=== PATIENT | female | born 1955 | race Caucasian/White ===

== ENCOUNTER 2017-02-22 07:47 | Day surgery (SDC) | payer MEDICAID ==
[2017-02-16 09:20] VITALS: BMI 35.9
[2017-02-22] MEDS ORDERED: Propofol 10 mg/ml Inj (20 ML) ONE ×2 (09:39→09:55)
[2017-02-22] MEDS ORDERED: Sodium Chloride 0.9% 1,000 ML IV SCH (10:15)
[2017-02-22 11:50] VITALS: BP 143/75; PULSE 51; RESP 16; TEMP 97.8; O2SAT 95
== END 2017-02-22 11:42 | disposition home or self-care (01) ==
LOC: ENDO 07:47
PROVIDERS: ATTEND Internal Medicine
DX: K62.5 Hemorrhage of anus and rectum (principal); K62.89 Other specified diseases of anus and rectum; K92.1 Melena; R19.7 Diarrhea, unspecified; K64.8 Other hemorrhoids; I10 Essential (primary) hypertension; E11.9 Type 2 diabetes mellitus without complications; M81.0 Age-related osteoporosis without current pathological fracture; Z90.710 Acquired absence of both cervix and uterus; Z86.010 Personal history of colon polyps
CPT/HCPCS: 45380; 82948; 88305; J2704; J7040

== ENCOUNTER 2018-03-17 18:56 | Inpatient (IN) | payer MEDICAID ==
[2018-03-17 19:38] VITALS: BMI 42.5
--- NOTE | 2018-03-17 19:46 | ED PDOC ---
Arrival/HPI - General Chief Complaint: Dizziness/Lightheaded Time Seen by Provider: 03/17/18 19:04 - History of Present Illness Narrative History of Present Illness (Text): 03/17/18 19:44 62 yo female, hx of htn, dm, presetns with dizziness for 5 days. taking meclzine w/o relief. states she has difficulty ambulating 2/2 dizziness. describes dizziness as "room spinning". no fevrs, cough. c/o of mild adam. Past Medical History - Infectious Disease Hx of Infectious Diseases: None - Cardiac Hx Hypertension: Yes Hx Pacemaker: No - Neurological Hx Paralysis: No Hx Vertigo: Yes - Endocrine/Metabolic Hx Diabetes Mellitus Type 2: Yes - Hematological/Oncological Hx Blood Transfusions: No Hx Blood Transfusion Reaction: No - Musculoskeletal/Rheumatological Hx Musculoskeletal Disorders: Yes Hx Osteoporosis: Yes - Psychiatric Hx Emotional Abuse: No Hx Physical Abuse: No Hx Substance Use: No - Surgical History Hx Hysterectomy: Yes Hx Mastectomy: Yes (R breast) - Anesthesia Hx Anesthesia: Yes Hx Anesthesia Reactions: No Hx Malignant Hyperthermia: No - Suicidal Assessment Feels Threatened In Home Enviroment: No Family/Social History Family/Social History: Unknown Family HX Smoking Status: Never Smoked Hx Alcohol Use: No Hx Substance Use: No Allergies/Home Meds Allergies/Adverse Reactions: Allergies No Known Allergies Allergy (Verified 02/16/17 09:18) Home Medications: Home Meds Medication Instructions Recorded Confirmed MetFORMIN ER [Glucophage XR] 750 mg PO DAILY 02/16/17 03/17/18 Wheat Dextrin [Benefiber] 1 each PO TID 02/16/17 03/17/18 amLODIPine [Norvasc] 10 mg PO DAILY 02/16/17 03/17/18 Aspirin [Ecotrin] 1 tab PO DAILY 02/22/17 03/17/18 Ergocalciferol [Drisdol 50,000 1 cap PO Q7D 03/17/18 03/17/18 Intl Units Cap] Meclizine HCl [Bonine] 1 tab PO Q12H PRN 03/17/18 03/17/18 Metoprolol Succinate [Metoprolol 1 tab PO DAILY 03/17/18 03/17/18 Succinate] hydroCHLOROthiazide [Microzide] 1 tab PO DAILY 03/17/18 03/17/18 Review of Systems - Review of Systems Constitutional: Normal Eyes: Normal ENT: Normal Respiratory: Normal Cardiovascular: Normal Gastrointestinal: Normal Genitourinary Female: Normal Musculoskeletal: Normal Skin: Normal Neurological: Headache, Dizziness Endocrine: Normal Hemo/Lymphatic: Normal Psychiatric: Normal Physical Exam Vital Signs Temp Pulse Resp BP Pulse Ox 03/17/18 22:32 62 20 143/74 97 03/17/18 19:21 99.1 F 63 18 133/89 95 Temperature: Afebrile Blood Pressure: Normal Pulse: Regular Respiratory Rate: Normal Appearance: Positive for: Well-Appearing, Non-Toxic, Comfortable Pain Distress: None Mental Status: Positive for: Alert and Oriented X 3 Finger Stick Blood Glucose: 98 - Systems Exam Head: Present: Atraumatic, Normocephalic Pupils: Present: PERRL Extroacular Muscles: Present: EOMI Conjunctiva: Present: Normal Mouth: Present: Moist Mucous Membranes Neck: Present: Normal Range of Motion Respiratory/Chest: Present: Clear to Auscultation, Good Air Exchange. No: Respiratory Distress, Accessory Muscle Use Cardiovascular: Present: Regular Rate and Rhythm, Normal S1, S2. No: Murmurs Abdomen: No: Tenderness, Distention, Peritoneal Signs Back: Present: Normal Inspection Upper Extremity: Present: Normal Inspection. No: Cyanosis, Edema Lower Extremity: Present: Normal Inspection. No: Edema Neurological: Present: GCS=15, CN II-XII Intact, Speech Normal, Motor Func Grossly Intact, Normal Sensory Function, Normal Cerebellar Funct Skin: Present: Warm, Dry, Normal Color. No: Rashes Psychiatric: Present: Alert, Oriented x 3, Normal Insight, Normal Concentration Medical Decision Making ED Course and Treatment: dizziness/vertigo- r/o centrla vs peripheral etiology 03/17/18 20:01 ekg nsr [address] twave chagnes 03/17/18 22:32 CT Head w/o Contrast reviewed, shows: Brain: Mild volume loss is seen in keeping with age. Mild decrease in attenuation of the periventricular white matter likely related to small vessel ischemic change. The brain otherwise with normal tadeo-white matter differentiation, demonstrating no edema, mass effect, acute hemorrhage, or focal mass. Ventricles: Unremarkable. No ventriculomegaly. Bones/joints: Unremarkable. No acute fracture. Soft tissues: Unremarkable. Sinuses: Unremarkable as visualized. No acute sinusitis. Mastoid air cells: Unremarkable as visualized. No mastoid effusion. IMPRESSION: There is mild atrophy and chronic white matter ischemic changes, with no evidence of an acute intracranial abnormality 03/18/18 02:02 pt reassesed persistent symptoms, will obs for eval for posterior cva - Lab Interpretations Lab Results: 03/17/18 20:20 03/17/18 21:00 Lab Results 03/17/18 21:00: Sodium 143, Potassium 3.3 L, Chloride 107, Carbon Dioxide 22, Anion Gap 18, BUN 28 H, Creatinine 1.0, Est GFR ( Amer) > 60, Est GFR ( Non-Af Amer) 56, Random Glucose 106, Calcium 10.0, Magnesium 1.6 L, Total Bilirubin 0.3, AST 29, ALT 31, Alkaline Phosphatase 89, Lactate Dehydrogenase 401, Total Creatine Kinase 54, Troponin I < 0.01, Total Protein 8.2, Albumin 4.3 , Globulin 3.9, Albumin/Globulin Ratio 1.1 03/17/18 20:20: PT 10.8, INR 0.95, APTT 28.8 03/17/18 20:20: WBC 10.5, RBC 4.21, Hgb 11.6 L, Hct 34.5 L, MCV 81.9, MCH 27.6, MCHC 33.6, RDW 15.1 H, Plt Count 284, MPV 12.2 H, Gran % 63.4, Lymph % (Auto) 26.1, [place] % (Auto) 7.4 H, Eos % (Auto) 2.9, Baso % (Auto) 0.2, Gran # 6.65 H, Lymph # (Auto) 2.7, [place] # (Auto) 0.8 H, Eos # (Auto) 0.3, Baso # (Auto) 0.02 03/17/18 17:44: Urine Color Yellow, Urine Appearance Sl cloudy, Urine pH 5.5, Ur Specific [place] >= 1.030, Urine Protein Negative, Urine Glucose (UA) Negative, Urine Ketones Negative, Urine Blood Trace-intact H, Urine Nitrate Positive H, Urine Bilirubin Negative, Urine Urobilinogen 0.2, Ur Leukocyte Esterase Negative, Urine RBC Pending, Urine WBC Pending - RAD Interpretation Radiology Orders: 03/17/18 19:44 HEAD W/O CONTRAST [CT] Stat - Medication Orders Current Medication Orders: Amlodipine Besylate (Norvasc) 10 mg PO DAILY [facility] Last Admin: 03/18/18 09:56 Dose: 10 mg MAR Blood Pressure Document 03/18/18 09:56 RV (Rec: 03/18/18 09:56 RV [email or web address] Blood Pressure Blood Pressure (100/60-150/90) 123/70 Aspirin (Ecotrin) 81 mg PO DAILY [facility] Last Admin: 03/18/18 09:56 Dose: 81 mg Diazepam (Valium) 2 mg PO Q8 [facility] PRN Reason: Protocol Insulin Human Regular (Humulin R Low) 0 units SC ACHS [facility] PRN Reason: Protocol Last Admin: 03/18/18 16:29 Dose: Not Given Non-Admin Reason: Blood Sugar Parameter MAR Blood Glucose Document 03/18/18 16:29 RV (Rec: 03/18/18 16:29 RV [id number] Blood Glucose Finger Stick Blood Glucose (70-120) 92 Metoprolol Succinate (Toprol Xl) 100 mg PO BRK [facility] Last Admin: 03/18/18 08:30 Dose: 100 mg MAR Pulse and Blood Pressure Document 03/18/18 08:30 RV (Rec: 03/18/18 08:30 RV [email or web address] Pulse Pulse Rate (60-90) 57 Blood Pressure Blood Pressure (100/60-150/90) 118/72 Ondansetron HCl (Zofran Inj) 4 mg IVP Q6H PRN PRN Reason: Nausea/Vomiting Psyllium Hydrophilic Mucilloid (Hydrocil Instant) 1 pkt PO TID [facility] Last Admin: 03/18/18 18:02 Dose: 1 pkt Discontinued Medications Aspirin (Aspirin) 325 mg PO STAT STA Stop: 03/17/18 22:10 Last Admin: 03/17/18 22:34 Dose: 325 mg Diphenhydramine HCl (Benadryl) 25 mg PO ONCE ONE Stop: 03/17/18 23:25 Last Admin: 03/18/18 00:00 Dose: 25 mg Magnesium 2 gm/50 ml NS (Magnesium Sulfate 2 Gm/50 Ml Ns) 2 gm in 50 mls @ 50 mls/hr IVPB ONCE ONE Stop: 03/17/18 23:13 Last Admin: 03/17/18 22:34 Dose: 50 mls/hr eMAR Start Stop Document 03/17/18 22:34 HI (Rec: 03/17/18 22:34 HI [id number]) Intravenous Solution Start Date 03/17/18 Start Time 22:34 Magnesium 2 gm/50 ml NS (Magnesium Sulfate 2 Gm/50 Ml Ns) 2 gm in 50 mls @ 50 mls/hr IVPB STAT STA Stop: 03/18/18 13:51 Last Admin: 03/18/18 14:02 Dose: 50 mls/hr eMAR Start Stop Document 03/18/18 14:02 RV (Rec: 03/18/18 14:02 RV [email or web address]) Intravenous Solution Start Date 03/18/18 Start Time 14:02 End Date 03/18/18 End time 15:02 Total Infusion Time 60 Meclizine HCl (Antivert) 25 mg PO STAT STA Stop: 03/17/18 19:46 Last Admin: 03/17/18 20:21 Dose: Not Given Non-Admin Reason: Patient Refused Potassium Chloride (K-Dur 20 Meq Er Tab) 40 meq PO STAT STA Stop: 03/17/18 21:43 Last Admin: 03/17/18 22:34 Dose: 40 meq NIHSS Scale ([place]) Time Performed: 02:03 - How Severe is the Stoke Baseline Level of Consciousness: 0=Alert LOC to Questions: 0=Both comments correct LOC to commands: 0=Obeys both correctly Best Gaze: 0=Normal Visual: 0=No visual loss Facial: 0=Normal Motor Arm - Left: 0=No drift Motor Arm - Right: 0=No drift Motor Leg - Left: 0=No drift Motor Leg - Right: 0=No drift Limb Ataxia: 0=Absent Sensory: 0=Normal Best Language: 0=No aphasia Dysarthia: 0=Normal articulation Extinction & Inattention (Neglect): 0=Normal, no object Score: 0 Risk Level: No Stroke Risk rTPA Inclusion/Exclusion - Refusal of Treatment Patient Refused Treatment: No - Inclusion Criteria for Altepase Patient is 18 years or Older: Yes The Clinical Diagnosis of Ischemic Stroke That is Causing a Potentially Disabling Neurological Deficit: No Time of Onset is Well Established to be Less Than 270 Minute Before Treatment Would Begin: No Risk/Benefit Discussed With Patient/Family Member Present: No - Scribe Statement The provider has reviewed the documentation as recorded by the Scribash Iraheta All medical record entries made by the Maverick were at my direction and personally dictated by me. I have reviewed the chart and agree that the record accurately reflects my personal performance of the history, physical exam, medical decision making, and the department course for this patient. I have also personally directed, reviewed, and agree with the discharge instructions and disposition. Disposition/Present on Arrival - Present on Arrival Any Indicators Present on Arrival: No History of DVT/PE: No History of Uncontrolled Diabetes: No Urinary Catheter: No History of Decub. Ulcer: No History Surgical Site Infection Following: None - Disposition Have Diagnosis and Disposition been Completed?: Yes Diagnosis: Dizziness, Vertigo Disposition: HOSPITALIZED Disposition Time: 23:00 Patient Problems: Current Active Problems Problem Status Onset Dizziness Acute Vertigo Acute Condition: STABLE
[2018-03-17 20:38] LABS: BASO # 0.02 K/mm3 (0.0-2.0); BASO % 0.2 % (0.0-3.0); EOS # 0.3 (0.0-0.7); EOS % 2.9 % (1.5-5.0); GRAN # 6.65 (1.4-6.5); GRAN % 63.4 % (50.0-68.0); HEMOGLOBIN 11.6 g/dL (12.0-16.0); LYMPH # 2.7 (1.2-3.4); LYMPH % 26.1 % (22.0-35.0); MEAN CELL VOLUME 81.9 fl (80.0-105.0); MEAN CORPUSCULAR HEMOGLOBIN 27.6 pg (25.0-35.0); MEAN CORPUSCULAR HGB CONC 33.6 g/dl (31.0-37.0); MEAN PLATELET VOLUME 12.2 fl (7.0-11.0); MONO # 0.8 (0.1-0.6); MONO % 7.4 % (1.0-6.0); RBC 4.21 10^6/uL (3.5-6.1); RED CELL DISTRIBUTION WIDTH 15.1 % (11.5-14.5); WHITE BLOOD COUNT 10.5 10^3/ul (4.5-11.0)
[2018-03-17 20:40] LABS: INR 0.95; PROTHROMBIN TIME 10.8 SECONDS (9.4-12.5)
[2018-03-17 20:42] LABS: PARTIAL THROMBOPLASTIN TIME 28.8 Seconds (25.1-36.5)
[2018-03-17 21:30] LABS: ALB/GLOB RATIO 1.1 (1.1-1.8); ALBUMIN 4.3 g/dL (3.0-4.8); ALT/SGPT 31 U/L (7-56); AST/SGOT 29 U/L (14-36); BLOOD UREA NITROGEN 28 mg/dL (7-21); GFR AFRICAN-AMERICAN > 60; GFR NON-AFRICAN AMERICAN 56
[2018-03-17 21:41] LABS: TROPONIN I < 0.01 ng/mL
[2018-03-17] MEDS ORDERED: Potassium Chloride 20 mEq ER Tab PO STA (21:42)
[2018-03-17] MEDS ORDERED: Magnesium 2 gm/50 ml NS 2 GM/50 ML BAG IVPB ONE (22:14)
[2018-03-17] MEDS ORDERED: DiphenhydrAMINE 12.5 mg/5 ml LIQ UD (5 ml) PO PRN (22:53)
--- NOTE | 2018-03-17 23:01 | CP.PCM.HP ---
<RikiDani - Last Filed: 03/17/18 23:29> History of Present Illness - History of Present Illness History of Present Illness: Dani Lyn DO, PGY-1: HPI for Hospitalist Service 62 year old female with a past medical history of hypertension, DM II, and right mastectomy who presents with 5 days of vertigo and bilateral ear pain. She had a URI a week or so ago for which she did not take any medications for. She was trying to go see her PMD, Dr. Shell, but was unable to catch him in the office. She is accompanied by her daughter who acts as the conditioning room worker. She also states that she had some back since she had this cold/URI, but then states that the back pain is chronic. She denies any difficulty breathing at the of my encounter but admits to exceptional level of fatigue after this cold. She denies any fever, chills, nausea, vomiting, diarrhea, dysuria, chest pain, or cough. She reports that the dizziness is like "the room is spinning" and is worsened with head movements. She denies having any history of heart problems, whether it be heart attack or arrhythmias. She does see a rivet tosser though. PMH: Hypertension, DM II PSH: Denies Allergies: Denies Social: Denies alcohol, tobacco, or illicit drug use Present on Admission - Present on Admission Any Indicators Present on Admission: No Review of Systems - Review of Systems All systems: reviewed and no additional remarkable complaints except (as per HPI ) Past Patient History - Infectious Disease Hx of Infectious Diseases: None - Past Social History Smoking Status: Never Smoked - CARDIAC Hx Hypertension: Yes Hx Pacemaker: No - NEUROLOGICAL Hx Paralysis: No Hx Vertigo: Yes - ENDOCRINE/METABOLIC Hx Diabetes Mellitus Type 2: Yes - HEMATOLOGICAL/ONCOLOGICAL Hx Blood Transfusions: No Hx Blood Transfusion Reaction: No - MUSCULOSKELETAL/RHEUMATOLOGICAL Hx Musculoskeletal Disorders: Yes Hx Osteoporosis: Yes - PSYCHIATRIC Hx Emotional Abuse: No Hx Physical Abuse: No Hx Substance Use: No - SURGICAL HISTORY Hx Hysterectomy: Yes Hx Mastectomy: Yes (R breast) - ANESTHESIA Hx Anesthesia: Yes Hx Anesthesia Reactions: No Hx Malignant Hyperthermia: No Meds Allergies/Adverse Reactions: Allergies Allergy/AdvReac Type Severity Reaction Status Date / Time No Known Allergies Allergy Verified 02/16/17 09:18 Physical Exam - Constitutional Appears: No Acute Distress - Head Exam Head Exam: ATRAUMATIC, NORMOCEPHALIC - Eye Exam Eye Exam: EOMI, Normal appearance, Nystagmus (with head movement) Pupil Exam: NORMAL ACCOMODATION - ENT Exam ENT Exam: Mucous Membranes Moist - Neck Exam Additional comments: JVD noted - Respiratory Exam Respiratory Exam: Clear to Auscultation Bilateral, NORMAL BREATHING PATTERN. absent: Accessory Muscle Use - Cardiovascular Exam Cardiovascular Exam: REGULAR RHYTHM, +S1, +S2 Additional comments: some ectopy - GI/Abdominal Exam GI & Abdominal Exam: Normal Bowel Sounds, Soft - Extremities Exam Extremities exam: Positive for: pedal edema (trace). Negative for: calf tenderness - Neurological Exam Neurological exam: Alert, CN II-XII Intact, Oriented x3 - Psychiatric Exam Psychiatric exam: Normal Affect, Normal Mood - Skin Skin Exam: Dry, Intact, Normal Color, Warm Results - Vital Signs Recent Vital Signs: Last Vital Signs Temp 99.1 F 03/17/18 19:21 Pulse 62 03/17/18 22:32 Resp 20 03/17/18 22:32 BP 143/74 03/17/18 22:32 Pulse Ox 97 03/17/18 22:32 - Labs Result Diagrams: 03/17/18 20:20 03/17/18 21:00 - EKG Data EKG Interpreted by: Myself EKG shows normal: Sinus rhythm Assessment & Plan - Assessment and Plan (Free Text) Assessment: 62 year old female with a past medical history of hypertension, DM II, and right mastectomy who presents with 5 days of vertigo, worsened with head movement. CT of the head showed mild atrophy and chronic white matter ischemic changes, with no evidence of an acute intracranial abnormality. Neurology is consulted. Plan: 1) Vertigo - CT head shows mild atrophy and chronic white matter ischemic changes, with no evidence of an acute intracranial abnormality. - Neurology consulted - Patient did respond to Meclizine, trial of Benadryl offered 2) Hypertension - Continue Amlodipine 10 mg - Holding HCTZ in light of it precipitating otoliths - HHD 2 grams of Na 3) DM II - Insulin Sliding scale low with FSBG checks ACHS - HHD moderate consistency 4) Hypomagesemia and hypokalemia - replete and re-check 5) DVT/GI prophylaxis - SCD - Pepcid 20 mg HS Case reviewed and discussed with attending physician, Dr. Clark - Date & Time Date: 03/17/18 Time: 23:50 <Dima Clark - Last Filed: 03/18/18 06:04> Results - Vital Signs Recent Vital Signs: Last Vital Signs Temp 98.9 F 03/17/18 23:11 Pulse 60 03/18/18 02:00 Resp 18 03/17/18 23:11 BP 143/74 03/17/18 23:11 Pulse Ox 97 03/17/18 23:11 - Labs Result Diagrams: 03/17/18 20:20 03/17/18 21:00 Attending/Attestation - Attestation I have personally seen and examined this patient.: Yes I have fully participated in the care of the patient.: Yes I have reviewed all pertinent clinical information: Yes Notes (Text): 03/18/18 06:03 Patient was seen when she was in bed 376-01. History obtained from daughter. Medical record was reviewed. Agree with history, physical examination, assessment and plan.
--- NOTE | 2018-03-18 07:48 | CT ---
Date of service: 03/17/2018 PROCEDURE: CT HEAD WITHOUT CONTRAST. HISTORY: dizziness COMPARISON: None available. TECHNIQUE: Axial computed tomography images were obtained through the head/brain without intravenous contrast. Radiation dose: Total exam DLP = 754 mGy-cm. This CT exam was performed using one or more of the following dose reduction techniques: Automated exposure control, adjustment of the mA and/or kV according to patient size, and/or use of iterative reconstruction technique. FINDINGS: HEMORRHAGE: No intracranial hemorrhage. BRAIN: No mass effect or edema. No atrophy or chronic microvascular ischemic changes. VENTRICLES: Unremarkable. No hydrocephalus. CALVARIUM: Unremarkable. PARANASAL SINUSES: Unremarkable as visualized. No significant inflammatory changes. MASTOID AIR CELLS: Unremarkable as visualized. No inflammatory changes. OTHER FINDINGS: The report concurs with the preliminary [facility] report IMPRESSION: No acute intracranial findings
[2018-03-18 07:55] LABS: BASO # 0.02 K/mm3 (0.0-2.0); BASO % 0.3 % (0.0-3.0); EOS # 0.3 (0.0-0.7); EOS % 4.7 % (1.5-5.0); GRAN # 3.75 (1.4-6.5); GRAN % 54.7 % (50.0-68.0); HEMOGLOBIN 11.6 g/dL (12.0-16.0); LYMPH # 2.1 (1.2-3.4); LYMPH % 31.1 % (22.0-35.0); MEAN CELL VOLUME 82.7 fl (80.0-105.0); MEAN CORPUSCULAR HEMOGLOBIN 26.7 pg (25.0-35.0); MEAN CORPUSCULAR HGB CONC 32.3 g/dl (31.0-37.0); MEAN PLATELET VOLUME 11.7 fl (7.0-11.0); MONO # 0.6 (0.1-0.6); MONO % 9.2 % (1.0-6.0); RBC 4.34 10^6/uL (3.5-6.1); WHITE BLOOD COUNT 6.9 10^3/ul (4.5-11.0)
[2018-03-18] MEDS: Insulin Reg-LOW-Coverage SC SCH ×4 (08:03→23:16)
[2018-03-18 08:15] LABS: ALB/GLOB RATIO 1.1 (1.1-1.8); ALBUMIN 4.1 g/dL (3.0-4.8); ALT/SGPT 26 U/L (7-56); AST/SGOT 26 U/L (14-36); BLOOD UREA NITROGEN 22 mg/dL (7-21); CALCIUM 9.8 mg/dL (8.4-10.5); GFR AFRICAN-AMERICAN > 60; GFR NON-AFRICAN AMERICAN > 60
--- NOTE | 2018-03-18 08:15 | RAD ---
Date of service: 03/17/2018 PROCEDURE: CHEST RADIOGRAPH, 1 VIEW HISTORY: recent URI with referred back pain COMPARISON: None available. FINDINGS: LUNGS: Clear. PLEURA: No pneumothorax or pleural fluid seen. CARDIOVASCULAR: Mild cardiomegaly OSSEOUS STRUCTURES: No significant abnormalities. VISUALIZED UPPER ABDOMEN: Normal. OTHER FINDINGS: None. IMPRESSION: No active disease.
[2018-03-18] MEDS: Metoprolol Succinate 100 mg XL Tab PO SCH (08:30)
--- NOTE | 2018-03-18 09:07 | CARD ---
APPROVED REPORT Date of service: 03/17/2018 EKG Measurement Heart [id number] <Conclusion> Normal sinus rhythm Normal ECG
[2018-03-18] MEDS: Psyllium Packet PO SCH ×3 (09:56→18:02)
[2018-03-18] MEDS ORDERED: METOPROLOL SUCCINATE PO SCH (10:00)
--- NOTE | 2018-03-18 12:33 | CP.PCM.PN ---
<Adis Guzman - Last Filed: 03/18/18 15:02> Subjective - Date & Time of Evaluation Date of Evaluation: 03/18/18 Time of Evaluation: 07:45 - Subjective Subjective: Adis Guzman PGY-1 Progress Note for Hospitalist Service Patient seen and evaluated at bedside. Patient sitting comfortably in bed in no acute distress. Patient reports some dizziness and fatigue, but denies chest pain, cough, palpitations, blurry vision and changes to bowel and urinary habits. Objective - Vital Signs/Intake and Output Vital Signs (last 24 hours): Temp Pulse Resp BP Pulse Ox 97.0 F L 57 L 19 123/70 97 03/18/18 06:00 03/18/18 08:30 03/18/18 06:00 03/18/18 09:56 03/18/18 06:00 Intake and Output: 03/18/18 03/18/18 06:59 18:59 Intake Total 60 Balance 60 - Medications Medications: Current Medications Amlodipine Besylate (Norvasc) 10 mg PO DAILY [facility] Last Admin: 03/18/18 09:56 Dose: 10 mg Aspirin (Ecotrin) 81 mg PO DAILY [facility] Last Admin: 03/18/18 09:56 Dose: 81 mg Insulin Human Regular (Humulin R Low) 0 units SC ACHS [facility] PRN Reason: Protocol Last Admin: 03/18/18 12:30 Dose: Not Given Metoprolol Succinate (Toprol Xl) 100 mg PO BRK [facility] Last Admin: 03/18/18 08:30 Dose: 100 mg Ondansetron HCl (Zofran Inj) 4 mg IVP Q6H PRN PRN Reason: Nausea/Vomiting Psyllium Hydrophilic Mucilloid (Hydrocil Instant) 1 pkt PO TID [facility] Last Admin: 03/18/18 09:56 Dose: 1 pkt - Labs Labs: 03/18/18 07:30 03/18/18 07:30 PT 10.8 SECONDS (9.4-12.5) 03/17/18 20:20 INR 0.95 03/17/18 20:20 APTT 28.8 Seconds (25.1-36.5) 03/17/18 20:20 Physical Exam - Constitutional Appears: No Acute Distress - Head Exam Head Exam: ATRAUMATIC, NORMOCEPHALIC. - Eye Exam Eye Exam: EOMI, Normal appearance, Nystagmus (with head movement) Pupil Exam: NORMAL ACCOMODATION - ENT Exam ENT Exam: Mucous Membranes Moist Mild L ear canal erythema . No pain to palpation or discharge noted - Respiratory Exam Respiratory Exam: Clear to Auscultation Bilateral, NORMAL BREATHING PATTERN. absent: Accessory Muscle Use - Cardiovascular Exam Cardiovascular Exam: REGULAR RHYTHM, +S1, +S2 - GI/Abdominal Exam GI & Abdominal Exam: Normal Bowel Sounds, Soft - Extremities Exam Extremities exam: Positive for: pedal edema (trace). Negative for: calf tenderness - Neurological Exam Neurological exam: Alert, CN II-XII Intact, Oriented x3 - Psychiatric Exam Psychiatric exam: Normal Affect, Normal Mood - Skin Skin Exam: Dry, Intact, Normal Color, Warm Assessment and Plan - Assessment and Plan (Free Text) Assessment: Assessment: 62 year old female with a past medical history of hypertension, DM II, and right mastectomy who presents with 5 days of weakness and lightheadedness, worsened with head movement. CT of the head showed mild atrophy and chronic white matter ischemic changes, with no evidence of an acute intracranial abnormality. Neurology is consulted. Plan: 1) Dizziness and Pre-syncope 2/2 dehydration vs URI vs intermittent hypotension vs BPPV - CT head shows mild atrophy and chronic white matter ischemic changes, with no evidence of an acute intracranial abnormality. - patient's daughter describes full body fatigue and intermittent dizziness upon walking for past 5 days. Patient also describes sensation of room spinning - - - Describes respiratory symptoms of congestion week prior that was not treated - orthostatic BPs negative. BP's here have been normal to slightly elevated. Patient takes 3 home medications for BP, which she took most recently yesterday morning - Neurology consulted - appreciate recommendations - Patient reports some relief with Meclizine 2) Hypertension - Continue Amlodipine 10 mg and Metoprolol 100 - Holding HCTZ in light of precipitating otoliths - HHD 2 grams of Na 3) DM II - Insulin Sliding scale low with FSBG checks ACHS - HHD moderate consistency 4) Hypomagesemia and hypokalemia - K 3.8 resolved after repletion with 40 mEq - Mg 1.6 repleted with 2 g and will check f/u Mg 5) DVT/GI prophylaxis - SCD - Pepcid 20 mg HS Patient seen, case reviewed, and plan discussed with Dr. Mccormick. Adis Guzman, PGY-1 <AnnyMary Lousergio Harrison - Last Filed: 03/18/18 18:56> Objective - Vital Signs/Intake and Output Vital Signs (last 24 hours): Temp Pulse Resp BP Pulse Ox 98.5 F 64 20 117/74 97 03/18/18 16:32 03/18/18 16:32 03/18/18 16:32 03/18/18 16:32 03/18/18 16:32 Intake and Output: 03/18/18 03/18/18 06:59 18:59 Intake Total 60 1250 Output Total 200 Balance 60 1050 - Medications Medications: Current Medications Amlodipine Besylate (Norvasc) 10 mg PO DAILY [facility] Last Admin: 03/18/18 09:56 Dose: 10 mg Aspirin (Ecotrin) 81 mg PO DAILY [facility] Last Admin: 03/18/18 09:56 Dose: 81 mg Diazepam (Valium) 2 mg PO Q8 [facility] PRN Reason: Protocol Insulin Human Regular (Humulin R Low) 0 units SC ACHS [facility] PRN Reason: Protocol Last Admin: 03/18/18 16:29 Dose: Not Given Metoprolol Succinate (Toprol Xl) 100 mg PO BRK [facility] Last Admin: 03/18/18 08:30 Dose: 100 mg Ondansetron HCl (Zofran Inj) 4 mg IVP Q6H PRN PRN Reason: Nausea/Vomiting Psyllium Hydrophilic Mucilloid (Hydrocil Instant) 1 pkt PO TID [facility] Last Admin: 03/18/18 18:02 Dose: 1 pkt - Labs Labs: 03/18/18 07:30 03/18/18 07:30 PT 10.8 SECONDS (9.4-12.5) 03/17/18 20:20 INR 0.95 03/17/18 20:20 APTT 28.8 Seconds (25.1-36.5) 03/17/18 20:20 Attending/Attestation - Attestation I have personally seen and examined this patient.: Yes I have fully participated in the care of the patient.: Yes I have reviewed all pertinent clinical information, including history, physical exam and plan: Yes Notes (Text): 03/18/18 18:54 62 year old female with past medical history of hypertension and diabetes who presented with complaint of dizziness. CT head was negative for acute findings. Neurology evaluation was appreciated; recommended trial of valium and CTA head and neck which is pending. PT evaluation was requested as well. Bryn Mccormick MD Hospitalist.
[2018-03-18] MEDS ORDERED: Magnesium 2 gm/50 ml NS 2 GM/50 ML BAG IVPB STA (12:52)
[2018-03-18 16:32] VITALS: RESP 20
[2018-03-18 17:48] LABS: PH,URINE 5.5 (4.7-8.0); URINE BILIRUBIN NEGATIVE (NEGATIVE); URINE BLOOD TRACE-INTACT (NEGATIVE); URINE GLUCOSE (UA) NEGATIVE (NEGATIVE); URINE LEUKOCYTE ESTERASE NEGATIVE Leu/uL (NEGATIVE); URINE PROTEIN NEGATIVE mg/dL (<30 mg/dL); URINE UROBILINOGEN 0.2 E.U./dL (<1 E.U./dL)
[2018-03-18 17:56] LABS: URINE APPEARANCE SL CLOUDY (CLEAR); URINE COLOR YELLOW (YELLOW)
--- NOTE | 2018-03-18 18:31 | CP.PCM.CON ---
History of Present Illness - History of Present Illness History of Present Illness: Neurology Consultation Note: Mrs. Leigh is a 62-year-old woman with a past medical history of hypertension, DM II, and right mastectomy who presented with 5 days of vertigo and bilateral ear pain. About a week ago, the patient had a cold and sinus pain. She states that when she moves her head, she feels that the room is spinning. She has not had any nausea/vomiting, headache, visual changes, focal weakness or difficulty with ambulation/gait instability. CT scan of the head did not show any acute findings. Review of Systems - Review of Systems All systems: reviewed and no additional remarkable complaints except Past Patient History - Infectious Disease Hx of Infectious Diseases: None - Past Social History Smoking Status: Never Smoked - CARDIAC Hx Hypertension: Yes Hx Pacemaker: No - PULMONARY Hx Respiratory Disorders: No - NEUROLOGICAL Hx Paralysis: No Hx Vertigo: Yes - HEENT Hx HEENT Problems: No - RENAL Hx Chronic Kidney Disease: No - ENDOCRINE/METABOLIC Hx Diabetes Mellitus Type 2: Yes - HEMATOLOGICAL/ONCOLOGICAL Hx Blood Transfusions: No Hx Blood Transfusion Reaction: No - INTEGUMENTARY Hx Dermatological Problems: No - MUSCULOSKELETAL/RHEUMATOLOGICAL Hx Musculoskeletal Disorders: Yes Hx Osteoporosis: Yes - GASTROINTESTINAL Hx Gastrointestinal Disorders: No - GENITOURINARY/GYNECOLOGICAL Hx Genitourinary Disorders: No - PSYCHIATRIC Hx Emotional Abuse: No Hx Physical Abuse: No Hx Substance Use: No - SURGICAL HISTORY Hx Hysterectomy: Yes Hx Mastectomy: Yes (R breast) - ANESTHESIA Hx Anesthesia: Yes Hx Anesthesia Reactions: No Hx Malignant Hyperthermia: No Meds Allergies/Adverse Reactions: Allergies Allergy/AdvReac Type Severity Reaction Status Date / Time No Known Allergies Allergy Verified 02/16/17 09:18 - Medications Medications: Current Medications Amlodipine Besylate (Norvasc) 10 mg PO DAILY [facility] Last Admin: 03/18/18 09:56 Dose: 10 mg Aspirin (Ecotrin) 81 mg PO DAILY [facility] Last Admin: 03/18/18 09:56 Dose: 81 mg Insulin Human Regular (Humulin R Low) 0 units SC ACHS [facility] PRN Reason: Protocol Last Admin: 03/18/18 16:29 Dose: Not Given Metoprolol Succinate (Toprol Xl) 100 mg PO BRK [facility] Last Admin: 03/18/18 08:30 Dose: 100 mg Ondansetron HCl (Zofran Inj) 4 mg IVP Q6H PRN PRN Reason: Nausea/Vomiting Psyllium Hydrophilic Mucilloid (Hydrocil Instant) 1 pkt PO TID [facility] Last Admin: 03/18/18 18:02 Dose: 1 pkt Physical Exam - Neurological Exam Neurological exam: Alert, CN II-XII Intact, Normal Gait, Oriented x3, Reflexes Normal Additional comments: Nystagmus with left lateral gaze. Vertigo is worse with right head turn during Anna-Hallpike. Coordination is intact. Results - Vital Signs Recent Vital Signs: Last Vital Signs Temp 98.5 F 03/18/18 16:32 Pulse 64 03/18/18 16:32 Resp 20 03/18/18 16:32 BP 117/74 03/18/18 16:32 Pulse Ox 97 03/18/18 16:32 - Labs Result Diagrams: 03/18/18 07:30 03/18/18 07:30 Labs: Laboratory Results - last 24 hr 03/18/18 03/18/18 03/18/18 07:30 07:30 07:44 WBC 6.9 D RBC 4.34 Hgb 11.6 L Hct 35.9 L MCV 82.7 MCH 26.7 MCHC 32.3 RDW 15.0 H Plt Count 230 MPV 11.7 H Gran % 54.7 Lymph % (Auto) 31.1 [place] % (Auto) 9.2 H Eos % (Auto) 4.7 Baso % (Auto) 0.3 Gran # 3.75 Lymph # (Auto) 2.1 [place] # (Auto) 0.6 Eos # (Auto) 0.3 Baso # (Auto) 0.02 Sodium 145 Potassium 3.8 Chloride 108 H Carbon Dioxide 25 Anion Gap 16 BUN 22 H Creatinine 0.9 Est GFR ( Amer) > 60 Est GFR (Non-Af Amer) > 60 POC Glucose (mg/dL) 82 Random Glucose 92 Calcium 9.8 Magnesium Total Bilirubin 0.6 AST 26 ALT 26 Alkaline Phosphatase 81 Total Protein 7.9 Albumin 4.1 Globulin 3.8 Albumin/Globulin Ratio 1.1 03/18/18 03/18/18 03/18/18 11:46 15:22 15:46 WBC RBC Hgb Hct MCV MCH MCHC RDW Plt Count MPV Gran % Lymph % (Auto) [place] % (Auto) Eos % (Auto) Baso % (Auto) Gran # Lymph # (Auto) [place] # (Auto) Eos # (Auto) Baso # (Auto) Sodium Potassium Chloride Carbon Dioxide Anion Gap BUN Creatinine Est GFR ( Amer) Est GFR (Non-Af Amer) POC Glucose (mg/dL) 120 H 92 Random Glucose Calcium Magnesium 2.3 H Total Bilirubin AST ALT Alkaline Phosphatase Total Protein Albumin Globulin Albumin/Globulin Ratio Assessment & Plan (1) Vertigo Assessment and Plan: This could be due to either vestibular neuronitis, or BPPV. I recommend starting Valium 2 mg Q8 and obtaining a CTA of the head/neck to rule out vertebro-basilar insufficiency. The patient would also benefit from vestibular rehab. Thank you. Status: Acute Priority: Medium
[2018-03-19 07:01] LABS: BASO # 0.01 K/mm3 (0.0-2.0); BASO % 0.1 % (0.0-3.0); EOS # 0.2 (0.0-0.7); EOS % 3.1 % (1.5-5.0); GRAN # 4.74 (1.4-6.5); GRAN % 61.1 % (50.0-68.0); HEMOGLOBIN 10.9 g/dL (12.0-16.0); LYMPH # 2.1 (1.2-3.4); LYMPH % 26.9 % (22.0-35.0); MEAN CELL VOLUME 82.4 fl (80.0-105.0); MEAN CORPUSCULAR HEMOGLOBIN 26.6 pg (25.0-35.0); MEAN CORPUSCULAR HGB CONC 32.2 g/dl (31.0-37.0); MEAN PLATELET VOLUME 11.7 fl (7.0-11.0); MONO # 0.7 (0.1-0.6); MONO % 8.8 % (1.0-6.0); RBC 4.1 10^6/uL (3.5-6.1); WHITE BLOOD COUNT 7.8 10^3/ul (4.5-11.0)
[2018-03-19 07:43] LABS: ALB/GLOB RATIO 1.1 (1.1-1.8); ALT/SGPT 32 U/L (7-56); AST/SGOT 25 U/L (14-36); BLOOD UREA NITROGEN 19 mg/dL (7-21); CALCIUM 9.1 mg/dL (8.4-10.5); GFR AFRICAN-AMERICAN > 60; GFR NON-AFRICAN AMERICAN > 60
[2018-03-19] MEDS: Insulin Reg-LOW-Coverage SC SCH ×4 (08:05→22:56)
[2018-03-19] MEDS: Metoprolol Succinate 100 mg XL Tab PO SCH (08:34)
[2018-03-19] MEDS: Psyllium Packet PO SCH ×3 (09:45→17:18)
--- NOTE | 2018-03-19 13:10 | CT ---
Date of service: 03/18/2018 PROCEDURE: CT Angiography of the neck with contrast HISTORY: vertigo COMPARISON: None. TECHNIQUE: Contiguous axial images of the neck were obtained from the level of the skull-base to the superior mediastinum in the arteriographic phase of enhancement. Coronal and sagittal reformats or also generated. IV contrast dose: Radiation Dose - DLP: mGy-cm This CT exam was performed using one or more of the following dose reduction techniques: Automated exposure control, adjustment of the mA and/or kV according to patient size, and/or use of iterative reconstruction technique. FINDINGS: RIGHT CAROTID ARTERIES: Common Carotid Artery: Normal. Carotid Bifurcation: Normal. Internal Carotid Artery:Normal. External Carotid Artery (proximal branches): Normal. LEFT CAROTID ARTERIES: Common Carotid Artery: Normal. Carotid Bifurcation: Normal. Internal Carotid Artery:Normal. External Carotid Artery (proximal branches): Normal. VERTEBRAL ARTERIES: Right Vertebral Artery: Normal. Left Vertebral Artery: Normal. OTHER FINDINGS: None. IMPRESSION: Normal CT Angiography of the neck. PROCEDURE: CT Angiography of the Brain. HISTORY: vertigo COMPARISON: None available. TECHNIQUE: CT angiography of the intracranial arteries was performed. Coronal and sagittal maximum intensity projection reformated images were generated. This CT exam was performed using one or more of the following dose reduction techniques: Automated exposure control, adjustment of the mA and/or kV according to patient size, and/or use of iterative reconstruction technique. FINDINGS: INTERNAL CEREBRAL ARTERIES: Unremarkable. The skull base, petrous, cavernous and supraclinoid segments are bilaterally widely patent. ANTERIOR CEREBRAL ARTERIES: Unremarkable. A1 and A2 segments are widely patent. Smaller distal branches unremarkable, as visualized. MIDDLE CEREBRAL ARTERIES: Unremarkable. M1 and M2 segments are widely patent. Perisylvian branches grossly symmetric. POSTERIOR CIRCULATION: Basilar Artery: Unremarkable. Distal Vertebral Arteries: Unremarkable. Posterior Cerebral Arteries: Unremarkable. Posterior Inferior Cerebellar Arteries: Unremarkable. ANEURYSM/ VASCULAR MALFORMATIONS: None. OTHER FINDINGS: The report concurs with the preliminary [facility] report IMPRESSION: Unremarkable CT Angiography of the Brain.
[2018-03-19 15:32] LABS: URINE RBC NEGATIVE /hpf (0-2)
[2018-03-19 15:33] LABS: URINE BACTERIA MOD (NEG)
--- NOTE | 2018-03-19 15:53 | CP.PCM.PN ---
<Adis Guzman - Last Filed: 03/19/18 15:50> Subjective - Date & Time of Evaluation Date of Evaluation: 03/19/18 Time of Evaluation: 09:00 - Subjective Subjective: Adis Guzman PGY-1 Progress Note for Hospitalist Service Patient seen and evaluated at bedside. Patient still complains of dizziness both when lying down and when walking around. Denies chest pain, cough, palpitations, shortness of breath, abdominal pain, pain on urination, changes in bowel habits, and leg pain. Objective - Vital Signs/Intake and Output Vital Signs (last 24 hours): Temp Pulse Resp BP Pulse Ox 98.2 F 64 20 146/87 98 03/19/18 06:00 03/19/18 14:17 03/19/18 06:00 03/19/18 14:17 03/19/18 06:00 Intake and Output: 03/19/18 03/19/18 06:59 18:59 Intake Total 100 Balance 100 - Medications Medications: Current Medications Amlodipine Besylate (Norvasc) 10 mg PO DAILY [facility] Last Admin: 03/19/18 09:44 Dose: 10 mg Aspirin (Ecotrin) 81 mg PO DAILY [facility] Last Admin: 03/19/18 09:44 Dose: 81 mg Diazepam (Valium) 2 mg PO Q8 [facility] PRN Reason: Protocol Last Admin: 03/19/18 13:43 Dose: 2 mg Insulin Human Regular (Humulin R Low) 0 units SC ACHS [facility] PRN Reason: Protocol Last Admin: 03/19/18 13:41 Dose: Not Given Metoprolol Succinate (Toprol Xl) 100 mg PO BRK [facility] Last Admin: 03/19/18 08:34 Dose: 100 mg Ondansetron HCl (Zofran Inj) 4 mg IVP Q6H PRN PRN Reason: Nausea/Vomiting Psyllium Hydrophilic Mucilloid (Hydrocil Instant) 1 pkt PO TID [facility] Last Admin: 03/19/18 13:41 Dose: 1 pkt - Labs Labs: 03/19/18 06:00 03/19/18 06:00 PT 10.8 SECONDS (9.4-12.5) 03/17/18 20:20 INR 0.95 03/17/18 20:20 APTT 28.8 Seconds (25.1-36.5) 03/17/18 20:20 Physical Exam - Constitutional Appears: No Acute Distress - Head Exam Head Exam: ATRAUMATIC, NORMOCEPHALIC. - Eye Exam Eye Exam: EOMI, Normal appearance, Nystagmus (with head movement) Pupil Exam: NORMAL ACCOMODATION - ENT Exam ENT Exam: Mucous Membranes Moist Mild L ear canal erythema . No pain to palpation or discharge noted - Respiratory Exam Respiratory Exam: Clear to Auscultation Bilateral, NORMAL BREATHING PATTERN. absent: Accessory Muscle Use - Cardiovascular Exam Cardiovascular Exam: REGULAR RHYTHM, +S1, +S2 - GI/Abdominal Exam GI & Abdominal Exam: Normal Bowel Sounds, Soft - Extremities Exam Extremities exam: Positive for: pedal edema (trace). Negative for: calf tenderness - Neurological Exam Neurological exam: Alert, CN II-XII Intact, Oriented x3 - Psychiatric Exam Psychiatric exam: Normal Affect, Normal Mood - Skin Skin Exam: Dry, Intact, Normal Color, Warm Assessment and Plan - Assessment and Plan (Free Text) Assessment: Assessment: 62 year old female with a past medical history of hypertension, DM II, and right mastectomy who presents with 5 days of weakness and lightheadedness, worsened with head movement. CT of the head showed mild atrophy and chronic white matter ischemic changes, with no evidence of an acute intracranial abnormality. Neurology is consulted. Plan: 1) Dizziness and Pre-syncope 2/2 Vestibular neuroneuritis vs URI vs intermittent hypotension vs BPPV - CT head shows mild atrophy and chronic white matter ischemic changes, with no evidence of an acute intracranial abnormality. - patient's daughter describes full body fatigue and intermittent dizziness upon walking for past 5 days. Patient also describes sensation of room spinning - - - Describes respiratory symptoms of congestion week prior that was not treated - orthostatic BPs negative. BP's here have been normal to slightly elevated. Patient takes 3 home medications for BP - Neurology consulted - CTA of brain and neck were unremarkable - 2 mg q8 valium began - Patient reports some relief with Meclizine 2) Hypertension - Continue Amlodipine 10 mg and Metoprolol 100 - Holding HCTZ in light of precipitating otoliths - HHD 2 grams of Na 3) DM II - Insulin Sliding scale low with FSBG checks ACHS - HHD moderate consistency 4) Hypomagesemia and hypokalemia - resolved - K 3.7 - Mg 1.8 5) DVT/GI prophylaxis - SCD - Pepcid 20 mg HS Disposition: Physical therapy recommended TCU for gait instability. Patient seen, case reviewed, and plan discussed with Dr. Mccormick. Adis Guzman, PGY-1 <Bryn Mccormick - Last Filed: 03/19/18 16:16> Objective - Vital Signs/Intake and Output Vital Signs (last 24 hours): Temp Pulse Resp BP Pulse Ox 98.2 F 64 20 146/87 98 03/19/18 06:00 03/19/18 14:17 03/19/18 06:00 03/19/18 14:17 03/19/18 06:00 Intake and Output: 03/19/18 03/19/18 06:59 18:59 Intake Total 100 Balance 100 - Medications Medications: Current Medications Amlodipine Besylate (Norvasc) 10 mg PO DAILY [facility] Last Admin: 03/19/18 09:44 Dose: 10 mg Aspirin (Ecotrin) 81 mg PO DAILY [facility] Last Admin: 03/19/18 09:44 Dose: 81 mg Diazepam (Valium) 2 mg PO Q8 [facility] PRN Reason: Protocol Last Admin: 03/19/18 13:43 Dose: 2 mg Insulin Human Regular (Humulin R Low) 0 units SC ACHS [facility] PRN Reason: Protocol Last Admin: 03/19/18 13:41 Dose: Not Given Metoprolol Succinate (Toprol Xl) 100 mg PO BRK [facility] Last Admin: 03/19/18 08:34 Dose: 100 mg Ondansetron HCl (Zofran Inj) 4 mg IVP Q6H PRN PRN Reason: Nausea/Vomiting Psyllium Hydrophilic Mucilloid (Hydrocil Instant) 1 pkt PO TID [facility] Last Admin: 03/19/18 13:41 Dose: 1 pkt - Labs Labs: 03/19/18 06:00 03/19/18 06:00 PT 10.8 SECONDS (9.4-12.5) 03/17/18 20:20 INR 0.95 03/17/18 20:20 APTT 28.8 Seconds (25.1-36.5) 03/17/18 20:20 Attending/Attestation - Attestation I have personally seen and examined this patient.: Yes I have fully participated in the care of the patient.: Yes I have reviewed all pertinent clinical information, including history, physical exam and plan: Yes Notes (Text): 03/19/18 16:14 62 year old female with past medical history of hypertension and diabetes who presented with complaint of dizziness. CT head was negative for acute findings. CTA head and neck was negative as well. She was seen by neurology who started valium with slight improvement of symptoms. However patient is still very unsteady as per physical therapy. Will continue with current management and requested PT follow up tomorrow. ?TCU vs Home with SVCs upon discharge. Bryn Mccormick MD Hospitalist.
[2018-03-20 06:32] VITALS: BP 117/78; O2SAT 95
[2018-03-20 07:37] LABS: BASO # 0.03 K/mm3 (0.0-2.0); BASO % 0.3 % (0.0-3.0); EOS # 0.3 (0.0-0.7); EOS % 3.5 % (1.5-5.0); GRAN # 5.2 (1.4-6.5); LYMPH # 2.7 (1.2-3.4); LYMPH % 29.9 % (22.0-35.0); MEAN CELL VOLUME 83.6 fl (80.0-105.0); MEAN CORPUSCULAR HEMOGLOBIN 27.3 pg (25.0-35.0); MEAN CORPUSCULAR HGB CONC 32.7 g/dl (31.0-37.0); MONO # 0.7 (0.1-0.6); MONO % 8.3 % (1.0-6.0); RBC 4.39 10^6/uL (3.5-6.1)
[2018-03-20 08:00] LABS: ALB/GLOB RATIO 1.1 (1.1-1.8); ALBUMIN 4.4 g/dL (3.0-4.8); ALT/SGPT 38 U/L (7-56); AST/SGOT 37 U/L (14-36); BLOOD UREA NITROGEN 16 mg/dL (7-21); CALCIUM 9.7 mg/dL (8.4-10.5); GFR AFRICAN-AMERICAN > 60; GFR NON-AFRICAN AMERICAN > 60
[2018-03-20] MEDS: Insulin Reg-LOW-Coverage SC SCH ×2 (08:59→11:53)
[2018-03-20 09:07] VITALS: TEMP 98
[2018-03-20] MEDS: Psyllium Packet PO SCH ×2 (09:32→15:47)
[2018-03-20] MEDS: Metoprolol Succinate 100 mg XL Tab PO SCH (09:38)
--- NOTE | 2018-03-20 12:29 | CP.PCM.PN ---
Subjective - Date & Time of Evaluation Date of Evaluation: 03/20/18 Time of Evaluation: 12:27 - Subjective Subjective: Ms. Leigh was seen and examined at the bedside. She is alert, oriented, denies any headache or dizziness. She is able to do her ADL's independently. She is requesting to be discharge today.She has plans to travel outside the country in 10 days.There was no untoward events overnight. Objective - Vital Signs/Intake and Output Vital Signs (last 24 hours): Temp Pulse Resp BP Pulse Ox 98 F 72 20 117/78 95 03/20/18 09:06 03/20/18 09:38 03/20/18 09:06 03/20/18 09:38 03/20/18 09:06 - Medications Medications: Current Medications Amlodipine Besylate (Norvasc) 10 mg PO DAILY [facility] Last Admin: 03/20/18 09:38 Dose: 10 mg Aspirin (Ecotrin) 81 mg PO DAILY [facility] Last Admin: 03/20/18 09:38 Dose: 81 mg Diazepam (Valium) 2 mg PO Q8 [facility] PRN Reason: Protocol Last Admin: 03/20/18 06:40 Dose: 2 mg Insulin Human Regular (Humulin R Low) 0 units SC ACHS [facility] PRN Reason: Protocol Last Admin: 03/20/18 11:53 Dose: Not Given Metoprolol Succinate (Toprol Xl) 100 mg PO BRK [facility] Last Admin: 03/20/18 09:38 Dose: 100 mg Ondansetron HCl (Zofran Inj) 4 mg IVP Q6H PRN PRN Reason: Nausea/Vomiting Psyllium Hydrophilic Mucilloid (Hydrocil Instant) 1 pkt PO TID [facility] Last Admin: 03/20/18 09:32 Dose: 1 pkt - Labs Labs: 03/20/18 07:00 03/20/18 07:00 PT 10.8 SECONDS (9.4-12.5) 03/17/18 20:20 INR 0.95 03/17/18 20:20 APTT 28.8 Seconds (25.1-36.5) 03/17/18 20:20 - Constitutional Appears: Well, No Acute Distress - Head Exam Head Exam: NORMAL INSPECTION - Neurological Exam Neurological Exam: Alert, Awake, Oriented x3 Neuro motor strength exam: Left Upper Extremity: 5, Right Upper Extremity: 5, Left Lower Extremity: 5, Right Lower Extremity: 5 Additional comments: alert, follows commands, sensation is intact. Assessment and Plan (1) Vertigo Assessment & Plan: Case discussed with Dr. Beltran, continue all current medical and physical therapies. Recommend out patient vestibular rehab and follow up with Dr. Beltran at [address] [place] [address], tel. [phone] for clearance prior to travel. Status: Acute
[2018-03-20 13:16] VITALS: PULSE 79
--- NOTE | 2018-03-20 14:00 | CP.PCM.DIS ---
<Adis Guzman - Last Filed: 03/20/18 13:49> Provider - Provider Date of Admission: 03/19/18 15:56 Attending physician: Bryn Mccormick MD Primary care physician: Dr. Elmore Consults: Neuro - Dr. Beltran Time Spent in preparation of Discharge (in minutes): 45 Hospital Course - Lab Results Lab Results: Most Recent Lab Values WBC 9.0 10^3/ul (4.5-11.0) 03/20/18 07:00 RBC 4.39 10^6/uL (3.5-6.1) 03/20/18 07:00 Hgb 12.0 g/dL (12.0-16.0) 03/20/18 07:00 Hct 36.7 % (36.0-48.0) 03/20/18 07:00 MCV 83.6 fl (80.0-105.0) 03/20/18 07:00 MCH 27.3 pg (25.0-35.0) 03/20/18 07:00 MCHC 32.7 g/dl (31.0-37.0) 03/20/18 07:00 RDW 15.0 % (11.5-14.5) H 03/20/18 07:00 Plt Count 260 10^3/uL (120.0-450.0) 03/20/18 07:00 MPV 12.0 fl (7.0-11.0) H 03/20/18 07:00 Gran % 58.0 % (50.0-68.0) 03/20/18 07:00 Lymph % (Auto) 29.9 % (22.0-35.0) 03/20/18 07:00 [place] % (Auto) 8.3 % (1.0-6.0) H 03/20/18 07:00 Eos % (Auto) 3.5 % (1.5-5.0) 03/20/18 07:00 Baso % (Auto) 0.3 % (0.0-3.0) 03/20/18 07:00 Gran # 5.20 (1.4-6.5) 03/20/18 07:00 Lymph # (Auto) 2.7 (1.2-3.4) 03/20/18 07:00 [place] # (Auto) 0.7 (0.1-0.6) H 03/20/18 07:00 Eos # (Auto) 0.3 (0.0-0.7) 03/20/18 07:00 Baso # (Auto) 0.03 K/mm3 (0.0-2.0) 03/20/18 07:00 PT 10.8 SECONDS (9.4-12.5) 03/17/18 20:20 INR 0.95 03/17/18 20:20 APTT 28.8 Seconds (25.1-36.5) 03/17/18 20:20 Sodium 145 mmol/L (132-148) 03/20/18 07:00 Potassium 3.9 mmol/L (3.6-5.0) 03/20/18 07:00 Chloride 106 mmol/L (98-107) 03/20/18 07:00 Carbon Dioxide 27 mmol/L (21-33) 03/20/18 07:00 Anion Gap 16 (10-20) 03/20/18 07:00 BUN 16 mg/dL (7-21) 03/20/18 07:00 Creatinine 0.8 mg/dl (0.7-1.2) 03/20/18 07:00 Est GFR ( Amer) > 60 03/20/18 07:00 Est GFR (Non-Af Amer) > 60 03/20/18 07:00 POC Glucose (mg/dL) 108 mg/dL (65-110) 03/20/18 11:19 Random Glucose 99 mg/dL (70-110) 03/20/18 07:00 Calcium 9.7 mg/dL (8.4-10.5) 03/20/18 07:00 Magnesium 1.8 mg/dL (1.7-2.2) 03/19/18 06:00 Total Bilirubin 0.6 mg/dL (0.2-1.3) 03/20/18 07:00 AST 37 U/L (14-36) H D 03/20/18 07:00 ALT 38 U/L (7-56) 03/20/18 07:00 Alkaline Phosphatase 85 U/L (38-126) 03/20/18 07:00 Lactate Dehydrogenase 401 U/L (333-699) 03/17/18 21:00 Total Creatine Kinase 54 U/L (35-230) 03/17/18 21:00 Troponin I < 0.01 ng/mL 03/17/18 21:00 Total Protein 8.4 g/dL (5.8-8.3) H 03/20/18 07:00 Albumin 4.4 g/dL (3.0-4.8) 03/20/18 07:00 Globulin 4.0 gm/dL 03/20/18 07:00 Albumin/Globulin Ratio 1.1 (1.1-1.8) 03/20/18 07:00 Urine Color Yellow (YELLOW) 03/17/18 17:44 Urine Appearance Sl cloudy (CLEAR) 03/17/18 17:44 Urine pH 5.5 (4.7-8.0) 03/17/18 17:44 Ur Specific [place] >= 1.030 (1.005-1.035) 03/17/18 17:44 Urine Protein Negative mg/dL (<30 mg/dL) 03/17/18 17:44 Urine Glucose (UA) Negative mg/dL (NEGATIVE) 03/17/18 17:44 Urine Ketones Negative mg/dL (NEGATIVE) 03/17/18 17:44 Urine Blood Trace-intact (NEGATIVE) H 03/17/18 17:44 Urine Nitrate Positive (NEGATIVE) H 03/17/18 17:44 Urine Bilirubin Negative (NEGATIVE) 03/17/18 17:44 Urine Urobilinogen 0.2 E.U./dL (<1 E.U./dL) 03/17/18 17:44 Ur Leukocyte Esterase Negative Cely/uL (NEGATIVE) 03/17/18 17:44 Urine RBC Negative /hpf (0-2) 03/17/18 17:44 Urine WBC 1 - 3 /hpf (0-6) 03/17/18 17:44 Ur Epithelial Cells 1 - 3 /hpf (0-5) 03/17/18 17:44 Urine Bacteria Mod (NEG) 03/17/18 17:44 - Hospital Course Hospital Course: Adis Guzman, PGY-1 Discharge Summary for Hospitalist Service 62 year old female with a past medical history of hypertension, DM II, and right mastectomy who presents with 5 days of vertigo and bilateral ear pain. She had a URI a week or so ago for which she did not take any medications. She was trying to go see her PMD, Dr. Shell, but was unable to see him in the office. She also states that she had some back pain since she had this cold/URI , but then states that the back pain is chronic. She denies any difficulty breathing at the of my encounter but admits to exceptional level of fatigue after this cold. She denies any fever, chills, nausea, vomiting, diarrhea, dysuria, chest pain, or cough. She reports that the dizziness is like "the room is spinning" and is worsened with head movements. She denies having any history of heart problems, whether it be heart attack or arrhythmias. CXR showed no active disease. CT head shows mild atrophy and chronic white matter ischemic changes, with no evidence of an acute intracranial abnormality. Neurology consulted, and Dr. Beltran recommended Starting valium 2g q8 and CTA head/neck to rule out vertebro basilar insufficiency, as well as considering Vestibular neuronitis vs BPPV. Neuro mentiond that [place] hallpike showed some nystagmus with L lateral gaze and R head turn caused vertigo. For patient's HTN, orthostatics were done and were found to be negative. Patient continued on Amlodipine 10, Metoprolol 100 but HCTZ was discontinued due to association with otolith formation. CTA head and neck both returned as unremarkable for any process or disease. Due to patient's unsteadiness, physical therapy was ordered to evaluate patient' s ambulatory status. At this time, PT recommends home with outpatient vestibular rehabilitation. Nystagmus is not appreciated at this time. Patient would benefit from vestibular rehab per Neurology recommendations and received information and website with numbers and providers per her choice. Patient is in no acute distress, is hemodynamically stable and is in full agreement with the plan to be discharged. Patient's questions were answered fully and to patient's satisfaction with the help of multiple family members fluent in both [place] and [place]. [employer] Stitcher Berny Costa ([id number]) was also used on [facility] real estate listing consultant service. Patient was told to follow up with Dr. Elmore for follow up within one week of discharge, as well as Dr. Beltran prior to any future travel. Patient seen, case reviewed, and plan discussed with Dr. Harding. Adis Guzman, PGY-1 Discharge Exam - Head Exam Head Exam: NORMAL INSPECTION - Additional Findings Additional findings: Physical Exam - Constitutional Appears: No Acute Distress, Pleasant and well nourished - Head Exam Head Exam: ATRAUMATIC, NORMOCEPHALIC. - Eye Exam Eye Exam: EOMI, Normal appearance, No observed Nystagmus with head movement Pupil Exam: NORMAL ACCOMODATION - ENT Exam ENT Exam: Mucous Membranes Moist - Respiratory Exam Respiratory Exam: Clear to Auscultation Bilateral, NORMAL BREATHING PATTERN. absent: Accessory Muscle Use - Cardiovascular Exam Cardiovascular Exam: REGULAR RHYTHM, +S1, +S2 - GI/Abdominal Exam GI & Abdominal Exam: Normal Bowel Sounds, Soft - Extremities Exam Extremities exam: Positive for: pedal edema (trace). Ambulates well without unsteadiness Negative for: calf tenderness - Neurological Exam Neurological exam: Alert, CN II-XII Intact, Oriented x3 - Psychiatric Exam Psychiatric exam: Normal Affect, Normal Mood - Skin Skin Exam: Dry, Intact, Normal Color, Warm Discharge Plan - Discharge Medications Prescriptions: diaZEpam [Valium] 2 mg PO Q12 PRN #10 tab PRN Reason: Dizziness - Follow Up Plan Condition: STABLE Disposition: HOME/ ROUTINE Patient education suggested?: Yes Instructions: Labyrinthitis, Vertigo (a Type of Dizziness) (DC), Dizziness, Nonvertigo, (DC), Diazepam, Vestibular Exercises Additional Instructions: Patient should follow all medications as prescribed. You are being prescribed a new medication, Valium. Please take as prescribed and be aware of any potential side effects as listed in the drug information provided. Patient should follow up with Dr. Elmore within one week for continuity of care. Please follow up with Dr. Beltran (Neurology) in [place] in one week for re- evaluation before travel. Patient should seek vestibular rehabilitation for compensatory mechanisms that may alleviate some of her symptoms. Patient and family was given information regarding specialists and provider directory to follow up. Should symptoms reoccur or worsen, please return to nearest emergency department. Referrals: Donna Elmore MD [Family Provider] - Tomer Beltran MD [Staff Provider] - <Elke Harding - Last Filed: 03/21/18 14:48> Provider - Provider Date of Admission: 03/19/18 15:56 Attending physician: Bryn Mccormick MD Hospital Course - Lab Results Lab Results: Most Recent Lab Values WBC 9.0 10^3/ul (4.5-11.0) 03/20/18 07:00 RBC 4.39 10^6/uL (3.5-6.1) 03/20/18 07:00 Hgb 12.0 g/dL (12.0-16.0) 03/20/18 07:00 Hct 36.7 % (36.0-48.0) 03/20/18 07:00 MCV 83.6 fl (80.0-105.0) 03/20/18 07:00 MCH 27.3 pg (25.0-35.0) 03/20/18 07:00 MCHC 32.7 g/dl (31.0-37.0) 03/20/18 07:00 RDW 15.0 % (11.5-14.5) H 03/20/18 07:00 Plt Count 260 10^3/uL (120.0-450.0) 03/20/18 07:00 MPV 12.0 fl (7.0-11.0) H 03/20/18 07:00 Gran % 58.0 % (50.0-68.0) 03/20/18 07:00 Lymph % (Auto) 29.9 % (22.0-35.0) 03/20/18 07:00 [place] % (Auto) 8.3 % (1.0-6.0) H 03/20/18 07:00 Eos % (Auto) 3.5 % (1.5-5.0) 03/20/18 07:00 Baso % (Auto) 0.3 % (0.0-3.0) 03/20/18 07:00 Gran # 5.20 (1.4-6.5) 03/20/18 07:00 Lymph # (Auto) 2.7 (1.2-3.4) 03/20/18 07:00 [place] # (Auto) 0.7 (0.1-0.6) H 03/20/18 07:00 Eos # (Auto) 0.3 (0.0-0.7) 03/20/18 07:00 Baso # (Auto) 0.03 K/mm3 (0.0-2.0) 03/20/18 07:00 PT 10.8 SECONDS (9.4-12.5) 03/17/18 20:20 INR 0.95 03/17/18 20:20 APTT 28.8 Seconds (25.1-36.5) 03/17/18 20:20 Sodium 145 mmol/L (132-148) 03/20/18 07:00 Potassium 3.9 mmol/L (3.6-5.0) 03/20/18 07:00 Chloride 106 mmol/L (98-107) 03/20/18 07:00 Carbon Dioxide 27 mmol/L (21-33) 03/20/18 07:00 Anion Gap 16 (10-20) 03/20/18 07:00 BUN 16 mg/dL (7-21) 03/20/18 07:00 Creatinine 0.8 mg/dl (0.7-1.2) 03/20/18 07:00 Est GFR ( Amer) > 60 03/20/18 07:00 Est GFR (Non-Af Amer) > 60 03/20/18 07:00 POC Glucose (mg/dL) 90 mg/dL (65-110) 03/20/18 16:37 Random Glucose 99 mg/dL (70-110) 03/20/18 07:00 Calcium 9.7 mg/dL (8.4-10.5) 03/20/18 07:00 Magnesium 1.8 mg/dL (1.7-2.2) 03/19/18 06:00 Total Bilirubin 0.6 mg/dL (0.2-1.3) 03/20/18 07:00 AST 37 U/L (14-36) H D 03/20/18 07:00 ALT 38 U/L (7-56) 03/20/18 07:00 Alkaline Phosphatase 85 U/L (38-126) 03/20/18 07:00 Lactate Dehydrogenase 401 U/L (333-699) 03/17/18 21:00 Total Creatine Kinase 54 U/L (35-230) 03/17/18 21:00 Troponin I < 0.01 ng/mL 03/17/18 21:00 Total Protein 8.4 g/dL (5.8-8.3) H 03/20/18 07:00 Albumin 4.4 g/dL (3.0-4.8) 03/20/18 07:00 Globulin 4.0 gm/dL 03/20/18 07:00 Albumin/Globulin Ratio 1.1 (1.1-1.8) 03/20/18 07:00 Urine Color Yellow (YELLOW) 03/17/18 17:44 Urine Appearance Sl cloudy (CLEAR) 03/17/18 17:44 Urine pH 5.5 (4.7-8.0) 03/17/18 17:44 Ur Specific [place] >= 1.030 (1.005-1.035) 03/17/18 17:44 Urine Protein Negative mg/dL (<30 mg/dL) 03/17/18 17:44 Urine Glucose (UA) Negative mg/dL (NEGATIVE) 03/17/18 17:44 Urine Ketones Negative mg/dL (NEGATIVE) 03/17/18 17:44 Urine Blood Trace-intact (NEGATIVE) H 03/17/18 17:44 Urine Nitrate Positive (NEGATIVE) H 03/17/18 17:44 Urine Bilirubin Negative (NEGATIVE) 03/17/18 17:44 Urine Urobilinogen 0.2 E.U./dL (<1 E.U./dL) 03/17/18 17:44 Ur Leukocyte Esterase Negative [place]/uL (NEGATIVE) 03/17/18 17:44 Urine RBC Negative /hpf (0-2) 03/17/18 17:44 Urine WBC 1 - 3 /hpf (0-6) 03/17/18 17:44 Ur Epithelial Cells 1 - 3 /hpf (0-5) 03/17/18 17:44 Urine Bacteria Mod (NEG) 03/17/18 17:44 Attending/Attestation - Attestation I have personally seen and examined this patient.: Yes I have fully participated in the care of the patient.: Yes I have reviewed all pertinent clinical information, including history, physical exam and plan: Yes Notes (Text): 03/21/18 14:43 Medical record note made by the resident after discussion with my direction and input after the patient was personally seen and examined by me. I have reviewed the chart and agree that the record accurately reflects by personal performance of the history, physical exam, data review, and medical decision-making, in the course for the patient. I have also personally directed the plan of care. 62 year old female with past medical history of hypertension and diabetes was admitted with dizziness. CT head was negative for acute findings. CTA head and neck was negative as well. She was seen by neurology who started valium .Symptoms has improved.Patient was evaluated again by physical therapy and discharge to home with out physical theapy has been recommended. She will follow up with PCP and Neurology. Management plan was discussed in detail with patient. Education was provided.
== END 2018-03-20 18:55 | disposition home or self-care (01) | DRG 65 ==
LOC: ED 18:56 → ERH 22:09 → 3RSO 23:09 → OBSVTOIN 03-19 15:56
PROVIDERS: ADMIT Hospitalist; ATTEND Internal Medicine
DX: R42 Dizziness and giddiness (principal); H55.00 Unspecified nystagmus; E11.9 Type 2 diabetes mellitus without complications; G89.29 Other chronic pain; I10 Essential (primary) hypertension; J06.9 Acute upper respiratory infection, unspecified; M81.0 Age-related osteoporosis without current pathological fracture; Z79.82 Long term (current) use of aspirin; Z90.11 Acquired absence of right breast and nipple; Z90.710 Acquired absence of both cervix and uterus